=== PATIENT | female | born 1965 | race African-American/Black ===

== ENCOUNTER 2020-05-11 11:05 | Outpatient (CLI) | payer OTHER ==
--- NOTE | 2020-05-11 11:29 | RAD ---
XR Knee Lt 4 View STANDARD HISTORY: Left knee pain COMPARISON: None. FINDINGS: There are marked degenerative changes in the left knee, most prominent in the medial tibiofemoral and patellofemoral compartments. No acute fracture or dislocation is seen. IMPRESSION: Left knee osteoarthritis
== END 2020-05-11 11:06 | disposition home or self-care (01) ==
LOC: NAV RAD 11:05
PROVIDERS: ATTEND Family Medicine
DX: M25.562 Pain in left knee (principal); M17.12 Unilateral primary osteoarthritis, left knee

== ENCOUNTER 2025-08-31 12:20 | Emergency (ER) | payer BC, OTHER | END 2025-08-31 13:45 | disposition home or self-care (01) | LOC: NAV ERS 12:20 | DX: S09.90XA Unspecified injury of head, initial encounter (principal); W01.10XA Fall on same level from slipping, tripping and stumbling with subsequent striking against unspecified object, initial encounter | CPT/HCPCS: 70450 ==